=== PATIENT | female | born 1950 | race Asian ===

== ENCOUNTER 2020-06-20 08:28 | Outpatient (REF) | payer MEDICARE, SELFPAY ==
--- NOTE | 2020-06-20 08:45 | MR_ITS ---
MR CERVICAL SPINE WITHOUT CONTRAST CLINICAL INFORMATION: Pain in the right arm. Radiculopathy. COMPARISON: Cervical spine MRI March 16, 2013. TECHNIQUE: MRI of the cervical spine was obtained using routine sequences without contrast. FINDINGS: There is slight retrosubluxation of C4 on C5 and C5 on C6. There is moderate to severe disc volume loss at C5-C6. There is no bone marrow edema. There are no acute fractures. The craniocervical junction is unremarkable. Several body heights are maintained. The cervical arterial flow voids are maintained. There are no significant soft tissue findings. The partially imaged intracranial compartment is unremarkable. C2-C3: Disc contour is normal. Bilateral facet arthropathy. No central canal stenosis and no foraminal stenosis. C3-C4: Shallow central disc protrusion mildly narrows the central canal. Bilateral facet arthropathy. No foraminal stenosis. C4-C5: Increase in size of a left paracentral disc protrusion that now compresses the left cord resulting in severe left-sided central canal stenosis. No definite cord signal abnormality at this level. Progressive left-sided uncovertebral joint spurring and facet arthropathy resulting in worsening moderate to severe left-sided foraminal stenosis. C5-C6: Worsening large broad-based disc protrusion and ligamentum flavum thickening resulting in worsening severe central canal stenosis and significant compression of the cervical cord. Intramedullary T2 signal changes within the cord at this level have progressed in comparison to the previous study. Uncovertebral joint spurring and facet arthropathy result in similar severe bilateral foraminal stenosis at this level. C6-C7: Shallow central disc protrusion and ligamentum flavum thickening mildly narrow the central canal. Similar left foraminal disc protrusion resulting in severe left foraminal stenosis and compression of the exiting left C7 nerve root. C7-T1: Bilateral hypertrophic facet arthropathy resulting in mild bilateral foraminal encroachment. MR/MR cervical spine wo con IMPRESSION: - At C4-C5, there has been an increase in size of a soft left paracentral disc protrusion that now compresses the left cervical cord, resulting in severe left-sided central canal stenosis. Progressive left-sided uncovertebral joint spurring and facet arthropathy resulting in worsening moderate to severe left-sided foraminal stenosis. - At C5-C6, a broad-based central disc protrusion and ligamentum flavum thickening result in worsening severe central canal stenosis with significant compression of the spinal cord. Intramedullary T2 signal changes within the cord at this level have progressed and can be correlated for acute myelopathic symptoms. Stable severe bilateral foraminal stenosis at this level. - At C6-C7, there is a similar left foraminal disc protrusion resulting in severe left foraminal stenosis and compression of the exiting left C7 nerve root. Covering provider paged with these findings at 2:02 PM on June 21, 2020.
[2020-06-20 13:22] LABS: Glucose, Whole Blood 328 mg/dL (60-115)
== END 2020-06-20 08:29 | disposition home or self-care (01) ==
LOC: HO.MRI 08:28
PROVIDERS: PCP Internal Medicine Geriatric Medicine; Visit Provider Emergency Medicine
DX: M79.601 Pain in right arm (principal); R61 Generalized hyperhidrosis
CPT/HCPCS: 72141; 82947

== ENCOUNTER 2023-09-10 16:01 | Outpatient (REF) | payer MEDICARE, SELFPAY ==
--- NOTE | ~2023-09-10 | XR_ITS ---
EXAMINATION: XR SHOULDER, RIGHT CLINICAL INFORMATION: Acute right shoulder pain COMPARISON: None available. TECHNIQUE: AP external rotation, Grashey, scapular Y, and axillary views of the right shoulder. FINDINGS: The bones and soft tissues are normal. No fracture. Glenohumeral and acromioclavicular alignment is anatomic with normal joint space. No abnormal soft tissue calcifications. XR/XR shoulder RT min 2V IMPRESSION: Normal right shoulder.
== END 2023-09-10 16:02 | disposition home or self-care (01) ==
LOC: HO.HHCX 16:01
PROVIDERS: Visit Provider Internal Medicine Geriatric Medicine
DX: Z13.89 Encounter for screening for other disorder (principal)
CPT/HCPCS: 73030

== ENCOUNTER 2023-09-10 16:24 | Outpatient (REF) | payer MEDICARE, SELFPAY ==
[2023-09-10 17:23] LABS: MANUAL DIFF FLAG NO
[2023-09-10 17:26] LABS: Basophils Percent Auto 0.8 % (0-2); Eosinophils Absolute Auto 0.1 X10*3/uL (0.0-0.4); Eosinophils Percent Auto 2.1 % (0-4); Hematocrit 45.9 % (37.0-47.0); Imm Gran Abs Auto 0.01 X10*3/uL (0.00-0.03); Imm Gran Pct Auto 0.2 % (0.0-0.4); Lymphocytes Absolute Auto 2.6 X10*3/uL (1.2-4.9); Lymphocytes Percent Auto 50.2 % (20-40); Mean Corpuscular HGB Conc 34.9 g/dl (31.0-35.0); Mean Platelet Volume 10.7 fL (9.4-12.3); Monocytes Absolute Auto 0.2 X10*3/uL (0.1-1.2); Neutrophils Absolute Auto 2.2 x10*3/uL (2.0-8.3); Neutrophils Percent Auto 42.7 % (45-73); Platelet Count 206 X10*3/uL (160-400); Red Blood Count 5.16 X10*6/uL (4.20-5.50); Red Cell Distribution Width 11.7 % (11.0-16.0); White Blood Count 5.2 X10*3/uL (4.8-10.8)
[2023-09-10 18:06] LABS: Creatinine Urine 80.94 mg/dL; Microalbum/Creatinine Ratio Ur 75.3 ug/mg cr (<30)
[2023-09-10 18:36] LABS: Glucose Random 400 mg/dL (60-115)
[2023-09-10 18:37] LABS: Alanine Aminotransferase 19 U/L (0-31); Albumin Level 4.3 g/dL (3.5-5.0); Alkaline Phosphatase 99 U/L (39-117); Anion Gap 12 (12-20); Aspartate Amino Transferase 15 U/L (5-31); Bilirubin Total 0.9 mg/dL (0.0-1.0); Blood Urea Nitrogen 9 mg/dL (9-16); Calcium 9.9 mg/dL (8.4-10.2); Carbon Dioxide 28 mmol/L (22-29); Chloride 101 mmol/L (96-108); Estimated Glomerular Filt Rate 54; Potassium 3.8 mmol/L (3.3-5.1); Sodium 137 mmol/L (135-145); Total Protein 7.9 g/dL (6.5-8.0)
[2023-09-11 06:30] LABS: Hemoglobin A1c % > 14.0 % (<6.0)
== END 2023-09-10 16:25 | disposition home or self-care (01) ==
LOC: HO.HHCL 16:24
PROVIDERS: Visit Provider Internal Medicine Geriatric Medicine
DX: M25.511 Pain in right shoulder (principal); E11.65 Type 2 diabetes mellitus with hyperglycemia
CPT/HCPCS: 36415; 73030; 80053; 82043; 82570; 83036; 85025

== ENCOUNTER 2024-08-27 13:37 | Outpatient (REF) | payer MEDICARE, SELFPAY ==
[2024-08-27 16:31] LABS: MANUAL DIFF FLAG NO
[2024-08-27 16:36] LABS: Basophils Percent Auto 0.7 % (0-2); Eosinophils Absolute Auto 0.1 X10*3/uL (0.0-0.4); Eosinophils Percent Auto 2.4 % (0-4); Hematocrit 43.4 % (37.0-47.0); Hemoglobin 14.6 g/dl (12.0-16.0); Imm Gran Abs Auto 0.02 X10*3/uL (0.00-0.03); Imm Gran Pct Auto 0.3 % (0.0-0.4); Lymphocytes Absolute Auto 2.5 X10*3/uL (1.2-4.9); Lymphocytes Percent Auto 43.1 % (20-40); Mean Corpuscular HGB Conc 33.6 g/dl (31.0-35.0); Mean Corpuscular Hemoglobin 30.4 pg (27.0-33.0); Mean Corpuscular Volume 90.2 fL (80.0-98.0); Mean Platelet Volume 11.5 fL (9.4-12.3); Monocytes Absolute Auto 0.3 X10*3/uL (0.1-1.2); Monocytes Percent Auto 4.8 % (2-11); Neutrophils Absolute Auto 2.8 x10*3/uL (2.0-8.3); Neutrophils Percent Auto 48.7 % (45-73); Platelet Count 167 X10*3/uL (160-400); Red Blood Count 4.81 X10*6/uL (4.20-5.50); Red Cell Distribution Width 12.4 % (11.0-16.0); White Blood Count 5.8 X10*3/uL (4.8-10.8)
[2024-08-27 16:58] LABS: Anion Gap 10 (12-20); Blood Urea Nitrogen 13 mg/dL (9-16); Calcium 9.5 mg/dL (8.4-10.2); Carbon Dioxide 27 mmol/L (22-29); Chloride 104 mmol/L (96-108); Cholesterol 125 mg/dL (<200); Estimated Glomerular Filt Rate 59; HDL Cholesterol 64 mg/dL (>40); LDL Cholesterol Calculated 36 mg/dL (<100); Potassium 3.9 mmol/L (3.3-5.1); Sodium 137 mmol/L (135-145); Triglycerides 125 mg/dL (<150)
[2024-08-27 17:41] LABS: Creatinine Urine 198.27 mg/dL; Microalbum/Creatinine Ratio Ur 24.2 ug/mg cr (<30)
[2024-08-27 18:04] LABS: Glucose Random 358 mg/dL (60-115)
== END 2024-08-27 13:38 | disposition home or self-care (01) ==
LOC: HO.HHCL 13:37
DX: Z00.00 Encounter for general adult medical examination without abnormal findings (principal); E11.65 Type 2 diabetes mellitus with hyperglycemia
CPT/HCPCS: 36415; 80048; 80061; 82043; 82570; 85025

== ENCOUNTER 2025-02-09 09:59 | Outpatient (REF) | payer MEDICARE, SELFPAY ==
--- OUTSIDE RECORDS SUMMARY | 2025-02-09 10:47 | XMS_ITS | Clinical Summary ---
Author Organization [facility] Address [address] [place] [address] Care Team Providers Care Yard Conductor Name Role Phone None, Provider Primary Care Provider Unavailabl e Social History Tobacco Use Types Packs/Day Years Used Date Smoking Tobacco: Never Assessed Comments Unknown Sex and Gender Information Value Date Recorded Sex Assigned at Not on file Legal Sex Female 15:12 EST Gender Identity Not on file Sexual Orientation Not on file Plan of Treatment Health Maintenance Due Date Last Done Comments Hepatitis C Screen 1950 Fall Risk Screening 2014 COVID-19 Vaccine ( season) 2024 RSV Immunization ( o r 60+ Years) (1 - 1-dose 75+ series) 2024 Care Teams Yard Conductor Relationship Specialty Start Date End Date None, Provider PCP - General 07/06/15
--- OUTSIDE RECORDS SUMMARY | 2025-02-09 10:47 | XMS_ITS | Encounter Summary ---
Author Organization [employer] Address [address] [facility] [address] [place] [address] Care Team Providers Care Mica Layer Name Role Phone Name, Solo PONCE Primary Care Provider [phone] Clara Batista PharmD Unavailable [phone] Reason for Visit * Reason Comments Med Refill Encounter Details Date Type Department Care Team ([facility] st Contact Info) Description 07/21/2024 Refill [facility] [address] [place] [address] Name, MD Solo [address] [place] [address] Type 2 diabetes mellitus with hyperglycemia, without long-term current use of insulin ([facility]) Social History Tobacco Use Types Packs/Day Years Used Date Smoking Tobacco: Never Smokeless Tobacco: Never Depression Answer Date Recorded Patient Health Questionnaire-9 Score 3 09/19/2023 Patient Health Questionnaire-9 Score 3 09/19/2023 Last PHQ-9: Questionnaire Data Not on file 0 09/19/2023 Housing Stability Answer Date Recorded What is your housing situation today? I have sunita donaldson 09/19/[address] you li ve. Do you have problems with any of the following? None of the above 09/19/2023 Food Insecurity Answer Date Recorded Within the past 12 months, y ou worried that your food would run out before you got money to buy more: Never True 09/19/2023 Within the past 12 months,th e food you bought just didn't last and you didn't have enough money to get more: Never True 10/2023 Transportation Answer Date Recorded In the past 12 months, has l ack of transportation kept you from medical appts, meetings, work or from getting things needed for daily living? No 09/19/2023 Utilities Answer Date Recorded In the past 12 months, has t he electric, gas, oil or water company threatened to shut off services in your home? No 09/19/2023 Depression Answer Date Recorded Patient Health Questionnaire-2 Score 1 09/19/2023 Comments Unknown Sex and Gender Information Value Date Recorded Sex Assigned at Female 04/15/2022 10:19 AM EDT Legal Sex Female 10:19 AM EDT Gender Identity Choose not to disclose 10:19 AM EDT Sexual Orientation Choose not to disclose 2021 10:19 AM EDT documented as of this encounter Miscellaneous Notes * Telephone Encounter - Solo Bhatt MD - 07/21/2024 10:48 AM EST She needs to be seen, her blood sugar was very high in the past and she has not bee here in a long time documented in this encounter Plan of Treatment Upcoming Encounters Date Type Department Care Team (Late st Contact Info) Description 03/16/2025 9:00 AM EDT Medication Management [facility] [address] [place] [phone] Clara Batista, PharmD [address] [place] [phone] 04/21/2025 9:15 AM EST Office Visit [facility] [address] [place] [phone] Solo Bhatt MD [address] [place] [phone] documented as of this encounter Visit Diagnoses Diagnosis Type 2 diabetes mellitus with hyperglycemia, without long-term current use of insulin ([facility]) documented in this encounter Additional Health Concerns Assessment Noted Time PHQ-9 Depression Total Score: 3 09/19/19 24 1:37 PM EDT documented as of this encounter Care Teams Mica Layer Relationship Specialty Start Date End Date Solo Bhatt MD [address] [place] [phone] PCP - General Family Medicine 09/20/15 Clara Batista, Danny [address] [place] [phone] Pharmacist Internal Medicine 11/04/24 documented as of this encounter
--- OUTSIDE RECORDS SUMMARY | 2025-02-09 10:47 | XMS_ITS | Encounter Summary ---
Author Organization [employer] Address [address] [facility] [address] [place] [address] Care Team Providers Care Powder Room Attendant Name Role Phone Name, Solo PONCE Primary Care Provider [phone] Clara Batista PharmD Unavailable Reason for Visit * Reason Onset Date Comments Appointment Request 02/09/2025 Encounter Details Date Type Department Care Team ([facility] st Contact Info) Description 02/09/2025 Telephone [facility] [address] [place] [address] Name, MD Solo [address] [place] [address] Appointment Request Social History Tobacco Use Types Packs/Day Years [...] encounter Miscellaneous Notes * Telephone Encounter - Amanda Dey RN - 02/09/2025 10:11 AM EDT Received call from james Elizabeth who saw pt today for CDTM visit. She said pt is requesting tocancel her appt for 02/10/[address] Qureshi, stated her sxs resolved and she doesn't have transportation. Cancelled appt per pt request. documented in this encounter Plan of Treatment Upcoming Encounters Date Type Department Care Team (Late st Contact Info) Description 03/16/2025 9:00 AM EDT Medication Management [facility] [address] [place] [phone] Clara Batista, Danny [address] [place] [phone] 04/21/2025 9:15 AM EST Office Visit [facility] [address] [place] [phone] NameSolo MD [address] [place] [phone] documented as of this encounter Visit Diagnoses Not on filedocumented in this encounter Additional Health Concerns Assessment Noted Time PHQ-9 Depression Total Score: 3 09/19/19 24 1:37 PM EDT documented as of this encounter Care Teams Powder Room Attendant Relationship Specialty Start Date End Date NameSolo MD [address] [place] [id number] PCP - General Family Medicine 09/20/15 Clara Batista, Danny [address] [place] [address] Pharmacist Internal Medicine 11/04/24 documented as of this encounter
--- OUTSIDE RECORDS SUMMARY | 2025-02-09 10:47 | XMS_ITS | Encounter Summary ---
Author Organization [employer] Address [address] [facility] [address] [place] [address] Care Team Providers Care Fence Machine Operator Name Role Phone Name, Solo PONCE Primary Care Provider [phone] Clara Batsita PharmD Unavailable [phone] Reason for Visit * Reason Comments Med Refill Encounter Details Date Type Department Care Team ([facility] st Contact Info) Description 07/26/2024 Refill [facility] [address] [place] [address] Name, MD Solo [address] [place] [address] Type 2 diabetes mellitus with hyperglycemia, without long-term current use of insulin ([facility]); Type 2 diabetes mellitus with hyperglycemia, without long-term current use of insulin ([facility]) Social History Tobacco Use Types Packs/Day Years [...] AM EDT documented as of this encounter Plan of Treatment Upcoming Encounters Date Type Department Care Team (Late st Contact Info) Description 03/16/2025 9:00 AM EDT Medication Management [facility] [address] [place] [phone] Clara Batista PharmD [address] [place] [phone] 04/21/2025 9:15 AM EST Office Visit [facility] [address] [place] [phone] Name, MD Solo [address] [place] [phone] documented as of this encounter Visit Diagnoses Diagnosis Type 2 diabetes mellitus with hyperglycemia, without long-term current use of insulin ([facility]) documented in this encounter Additional Health Concerns Assessment Noted Time PHQ-9 Depression Total Score: 3 09/19/19 24 1:37 PM EDT documented as of this encounter Care Teams Fence Machine Operator Relationship Specialty Start Date End Date Name, MD Solo [address] [place] [phone] PCP - General Family Medicine 09/20/15 Clara Batista PharmD [address] [place] [phone] Pharmacist Internal Medicine 11/04/24 documented as of this encounter
--- OUTSIDE RECORDS SUMMARY | 2025-02-09 10:47 | XMS_ITS | Encounter Summary ---
Author Organization [employer] Address [address] [facility] [address] [place] [address] Care Team Providers Care Insurance And Benefits Clerk Name Role Phone Name, Solo PONCE Primary Care Provider [phone] Clara Batista PharmD Unavailable [phone] Reason for Visit * Reason Comments Med Refill Encounter Details Date Type Department Care Team ([facility] st Contact Info) Description 08/18/2024 Refill [facility] [address] [place] [address] Peggy Cantrell NP [address] [place] [address] Type 2 diabetes mellitus with hyperglycemia, without long-term current use of insulin ([facility]) Social History Tobacco Use Types Packs/Day Years [...] Description 03/16/2025 9:00 AM EDT Medication Management [facility] [address] [place] [phone] Clara Batista PharmD [address] [place] [phone] 04/21/2025 9:15 AM EST Office Visit [facility] [address] [place] [phone] Name, MD Solo [address] [place] [phone] documented as of this encounter Visit Diagnoses Diagnosis Type 2 diabetes mellitus with hyperglycemia, without long-term current use of insulin ([facility]) documented in this encounter Additional Health Concerns Assessment Noted Time PHQ-9 Depression Total Score: 3 09/19/19 24 1:37 PM EDT documented as of this encounter Care Teams Insurance And Benefits Clerk Relationship Specialty Start Date End Date Name, MD Solo [address] [place] [phone] PCP - General Family Medicine 09/20/15 Clara Batista PharmD [address] [place] [phone] Pharmacist Internal Medicine 11/04/24 documented as of this encounter
--- OUTSIDE RECORDS SUMMARY | 2025-02-09 10:47 | XMS_ITS | Clinical Summary ---
Author Organization [email or web address] Address [address] [facility] [address] [place] [address] Care Team Providers Care Assault Amphibious Vehicle Officer Name Role Phone Name, Solo PONCE Primary Care Provider [phone] Clara Batista PharmD Unavailable [phone] Allergies No known active allergies Medications Alcohol Swabs 70 % pads Use to test blood sugar one times daily 100 each 09/12/19 24 Active Blood Glucose Monitoring Suppl (FreeStyle [place] Lite) w/Device kit Use to test blood sugar once times daily 1 kit 09/12/19 24 Active FREESTYLE LITE test stripIndicatio ns:Type 2 diabetes mellitus with hyperglycemia, without long-term current use of insulin (CMS/HCC) USE ONCE DAILY 100 each 11 05/17/20 24 Active TRUEplus Lancets 33G miscIndication s:Type 2 diabetes mellitus with hyperglycemia, without long-term current use of insulin (CMS/HCC) USE DIRECTED TO TEST BLOOD SUGAR EVERY DAY 100 each 11 05/19/20 24 Active atorvastatin (Lipitor) 40 MG tabletIndicati ons:Type 2 diabetes mellitus with hyperglycemia, without long-term current use of insulin (CMS/HCC) Take 1 tablet (40 mg) by mouth in the morning. 90 tablet 3 08/28/19 25 Active cetirizine (ZyrTEC) 10 MG tabletIndicati ons:Poison jamar dermatitis Take 1 tablet (10 mg) by mouth if needed each day for allergies. 30 tablet 11/12/19 25 Active glimepiride (Amaryl) 4 MG tabletIndicati ons:Type 2 diabetes mellitus with hyperglycemia, without long-term current use of insulin (CMS/HCC) Take 1 tablet (4 mg) by mouth before breakfast. 30 tablet 1 02/01/20 25 Active terconazole (Terazol 7) 0.4 % vaginal cream Insert 1 applicator into the vagina at bedtime for 14 days. 45 g 02/01/20 25 025 Active empagliflozin- metFORMIN ER (Synjardy XR) 12.5-1000 MG 24 hr tablet Take 2 tablets by mouth with breakfast. 180 tablet 1 02/10/20 25 Active Jardiance 25 MGIndications: Type 2 diabetes mellitus with hyperglycemia, without long-term current use of insulin ([facility]) TAKE 1 TABLET BY MOUTH EVERY DAY IN THE MORNING 30 tablet 3 09/21/19 25 025 Discontinued(Re order (will not trigger notification to Pharmacy)) metFORMIN XR (Glucophage-XR ) 500 MG 24 hr tabletIndicati ons:Type 2 diabetes mellitus with hyperglycemia, without long-term current use of insulin ([facility]) Take 1 tablet (500 mg) by mouth with breakfast AND 2 tablets (1,000 mg) with evening meal. Do not crush, chew, or split. 270 tablet 11/05/19 025 Discontinued(Re order (will not trigger notification to Pharmacy)) clobetasol (Temovate) 0.05 % ointmentIndica tions:Poison jamar dermatitis Apply topically 2 times daily. 30 g 1 11/12/19 025 Discontinued(Me d list cleanup (will not trigger notification to Pharmacy)) glimepiride (Amaryl) 4 MG tabletIndicati ons:Type 2 diabetes mellitus with hyperglycemia, without long-term current use of insulin ([facility]) TAKE 1 TABLET BY MOUTH EVERY DAY BEFORE BREAKFAST 30 tablet 1 12/23/19 25 025 Discontinued(Re order (will not trigger notification to Pharmacy)) empagliflozin (Jardiance) 25 MGIndications: Type 2 diabetes mellitus with hyperglycemia, without long-term current use of insulin ([facility]) Take 1 tablet (25 mg) by mouth in the morning. 30 tablet 1 02/01/20 25 025 Discontinued(Al ternate therapy) metFORMIN XR (Glucophage-XR ) 500 MG 24 hr tabletIndicati ons:Type 2 diabetes mellitus with hyperglycemia, without long-term current use of insulin ([facility]) Take 2 tablets (1,000 mg) by mouth with breakfast AND 1 tablet (500 mg) with evening meal. Do not crush, chew, or split. 90 tablet 1 02/01/20 25 025 Discontinued(Al ternate therapy) Active Problems Problem Noted Date Diagnosed Date Vulvovaginitis 02/01/2025 Assessment & Plan (02/01/2025 12:26 AM EDT): Urine dipstick Glu 500, ketone neg , blood neg , LE, nitrates neg Severe erythema of vulva -generalized with whitish discoloration ( pt reports using unspecified cream in area) , no vaginal pain w palpation nor vaginal discharge noted ,noted small fissure in right upper vulva -seems possibly from scratching Seems severe vulvar rocael infection possible in setting of jardiance use?,denies hx of reccurent of fungal infection -terconazole cream to apply in vulva daily for 14 days -I will see in clinic in 10 days to monitor -if no improvement will refer to dermatology to r/o other vulvar pathology in which case will likely need bx -If resolved but recurs will need to consider jardiance as likely cause and will need to consider discontinuation, given 1st episode will continue for now Type 2 diabetes mellitus 08/02/2022 Assessment & Plan (02/01/2025 12:25 AM EDT): -hb1AC 8.6 ,CBG 189 today -08/2024 Basic panel wnl, GFR 59 Better control but still not at goal Given uncontrol DM can predispose to rocael vulvovaginitis will adjust regimen -Saw CDTM in 11/04/2024 -on Glimepiride 4 mg daily ,Jardiance 25 mg daily,Metformin ER 500 mg twice daily -increase today metformin to 1000 mg am and continue 500 mg Pm -f w PCP and CDTM-sent message to pharmacist to help pt for f up apt Assessment & Plan (10/10/2023 5:52 PM EDT): Restart metformin , monitor renal function, pt aware of importance of close monitoring, labs ordered for 3 months Pt declines assistance including nurse visits and med management at pharmacy Encouraged routine health maintenance Assessment & Plan (09/20/2023 5:35 PM EDT): Pt with needle phobia, extensive conversation about limitations of oral medications and ability to lower blood sugar, encouraged pt to consider glp-1 , pt verablizes understanding, declines Increase jardiance to 25 mg, Labs ordered Spinal cord compression 08/02/2022 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 [address] [place] [phone] Solo Bhatt MD Appointment Request 02/09/2025 Travel 01/31/2025 2:00 PM EDT Office Visit [facility] [address] [place] [phone] Quyen Merritt MD Vulvovaginitis (Primary Dx); Vaginal itching; Type 2 diabetes mellitus with hyperglycemia, without long-term current use of insulin ([facility]) 01/31/2025 Travel 01/31/[address] [facility] [address] [place] [phone] Solo Bhatt MD Type 2 diabetes mellitus with hyperglycemia, without long-term current use of insulin ([facility]) 12/22/[address] [facility] [address] [place], [place] [phone] Solo Bhatt MD Type 2 diabetes mellitus with hyperglycemia, without long-term current use of insulin ([facility]) 12/20/[address] [facility] [address] [place], [place] [phone] Solo Bhatt MD Type 2 diabetes mellitus with hyperglycemia, without long-term current use of insulin ([facility]) 11/11/2024 1:40 PM EDT Office Visit [facility] [address] [place] [address] [phone] Hillary Rodriguez MD Poison jamar dermatitis (Primary Dx) 11/11/2024 Travel from Last 3 Months Immunizations Immunization Administration Dates Next Due Influenza High-dose Quadrivalent Preservative Fr ee 03/27/2022,06/30/2020 Influenza injectable quadriv alent IIV4 with preservative 05/21/2016,03/08/2015 Influenza, High Dose Seasonal, Preservative Free 05/03/2019,05/04/2018 Influenza, IIV3, injectable 05/17/2014, 1 Influenza, Split (incl. purified surface antigen ) 06/14/2013 Pfizer Covid-19 Vaccine 12+ norman-sucrose ([place] C ap) 08/30/2021 Pneumococcal Conjugate PCV 13 03/08/2015 Pneumococcal Polysaccharide PPSV23 06/30/2020, TD (adult), 2 Lf tetanus tox oid, preservative free, adsorbed 03/16/2008 Tdap 02/09/2025,06/14/2013 Zoster, Recombinant 03/05/2022 Zoster, live 03/08/2015 Social History Tobacco Use Types Packs/Day Years Used Date Smoking Tobacco: Never Smokeless Tobacco: Never Tobacco Cessation:Counseling Given: Not Answered Depression Answer Date Recorded Patient Health Questionnaire-9 [...] not to disclose 2021 10:19 AM EDT Last Filed Vital Signs Vital Sign Reading Time Taken Comments Blood Pressure 102/70 01/31/2025 1:57 PM EDT Pulse 91 01/31/2025 1:57 PM EDT Temperature 36.2 C (97.1 F) 01/31/2025 1:57 PM EDT Respiratory Rate 20 01/31/2025 1:57 PM EDT Oxygen Saturation 99% 01/31/2025 1:57 PM EDT Inhaled Oxygen Concentration - - Weight 51.6 kg (113 lb 12.8 oz) 01/31/2025 1:57 PM EDT Height 149.9 cm (4' 11 ) 01/31/2025 1:57 PM EDT Body Mass Index 22.98 01/31/2025 1:57 PM EDT Plan of Treatment Upcoming Encounters Date Type Department Care Team (Late st Contact Info) Description 03/16/2025 9:00 AM EDT Medication Management [facility] MED[facility]INE [address] [place] [phone] PuiaBrandysa, PharmD [address] [place] [phone] 04/21/2025 9:15 AM EST Office Visit [facility] MED[facility] [address] [place] [address] [phone] Name, MD Solo [address] [place] [phone] Health Maintenance Due Date Last Done Comments CT Colonography 1949 Colonoscopy 1949 Colorectal Cancer Screening 1949 FIT DNA/Cologuard 1949 FIT 1949 FOBT 1949 Sigmoidoscopy 1949 Alcohol/Substance Use Screening 1961 Hepatitis C Screening 12/22/1967 Zoster Vaccines (3 of 3) 04/30/2022 03/05/2022, 02/15 COVID-19 Vaccine ( season) 2024 08/30/2021, 10/22/2020, 10/01/2020 Depression Screening 09/18/2024 09/19/2023, 09/19/19 24 SDOH Screening 09/18/2024 09/19/2023 RSV Patients and Patients Aged 60 years or older (1 - 1-dose 75+ series) 2024 Influenza Vaccine (#1) 2025 , 06/30/2020, 05/03/2019, Additional history exists Eye Exam 03/30/2025 03/30/2024, 03/16, 03/30/2024, Additional history exists Diabetes: Hemoglobin A1C 05/03/2025 025, 08/27/2024, 09/10/2023, Additional history exists Diabetes: Foot Exam 08/27/2025 08/27/2024, 08/27/2024, 08/27/2024, Additional history exists Diabetes: Urine Protein Screening 08/27/2025 08/27/2024, 09/10/2023, 08/06/2022, Additional history exists Lipid Panel 08/27/2025 08/27/2024, 07/18, 01/03/2022 Tobacco Screening 01/31/2026 01/31/2025 DTaP/Tdap/Td Vaccines (3 - Td or Tdap) 02/09/2035 02/09/2025, 06/14/2013, 03/16/2008 Pneumococcal Vaccine: 50+ Years Completed 06/30/2020, 03/08/2015, 11/08/2008 HIB Vaccines Aged Out No longer eligi ble based on patient's age to complete this topic HPV Vaccines Aged Out No longer eligi ble based on patient's age to complete this topic Hepatitis A Vaccines Aged Out No long er eligible based on patient's age to complete this topic Hepatitis B Vaccines Aged Out No long er eligible based on patient's age to complete this topic IPV Vaccines Aged Out No longer eligi ble based on patient's age to complete this topic Meningococcal B Vaccine Aged Out No l onger eligible based on patient's age to complete this topic Meningococcal Vaccine Aged Out No luiz ankit eligible based on patient's age to complete this topic RSV under 20 months Aged Out No longe r eligible based on patient's age to complete this topic Rotavirus Vaccines Aged Out No longer eligible based on patient's age to complete this topic Procedures Procedure Name Priority Date/Time Associated Diagnosis Comments POCT GLUCOSE Routine 02/09/2025 9:49 AM EDT Type 2 diabetes mellitus with hyperglycemia, without long-term current use of insulin ([facility]) POCT GLYCATED HEMOGLOBIN, TOTAL Routine 01/31/2025 2:17 PM EDT Type 2 diabetes mellitus with hyperglycemia, without long-term current use of insulin ([facility]) POCT GLUCOSE Routine 01/31/2025 2:14 PM EDT Type 2 diabetes mellitus with hyperglycemia, without long-term current use of insulin ([facility]) POCT URINALYSIS DIPSTICK Routine 01/31/2025 2:03 PM EDT Vaginal itching ALBUMIN, RANDOM URINE W/CREATININE Routine 08/27/2024 1:40 PM EDT Type 2 diabetes mellitus with hyperglycemia, without long-term current use of insulin ([facility]) LIPID PANEL, STANDARD Routine 08/27/2024 1:40 PM EDT Type 2 diabetes mellitus with hyperglycemia, without long-term current use of insulin ([facility]) from Last 3 Months or Most Recently Relevant to Health Maintenance Results * (ABNORMAL) POCT Glucose (02/09/2025 9:49 AM EDT) Only the most recent of2 resultswithin the time period is included. Glucose Blood, POC 256(A) 60 - 200 mg/dL Blood Capillary blood specimen / Unknown 02/09/2025 9:49 AM EDT us Solo Name MD POINT OF CARE TEST ENTER/EDIT OR DERABLES Final Result * (ABNORMAL) POCT HGB A1C (01/31/2025 2:17 PM EDT) Pathologist [facility] Hemoglobin A1C 8.6(A) 4.0 - 5.7 % QC Media Lot # [id number] Lot# Expiration Date [id number] Blood 01/31/2025 2:17 PM EDT Quyen Box MD POINT OF CARE FRANCIE T ENTER/EDIT ORDERABLES Final Result * POCT Urinalysis (01/31/2025 2:03 PM EDT) Pathologist [facility] Color, UA Yellow Clarity, UA Clear Glucose, UA 4+ >500 Comment:500 Bilirubin, UA Negative Ketones, UA Negative Spec Grav, UA 1.010 Blood, UA Negative Negative, None Detected pH, UA 6.0 Protein, UA Negative Urobilinogen, UA 0.2 Leukocytes, UA Negative Negative, Rare, Trace Nitrite, UA Negative Negative, None Detected QC Media Lot # [id number] Lot# Expiration Date [id number] Urine 01/31/2025 2:03 PM EDT Quyen Box MD POINT OF CARE FRANCIE T ENTER/EDIT ORDERABLES Final Result * Albumin, Random Urine W/Creatinine (08/27/2024 1:40 PM EDT) Creatinine, Urine 198.27 mg/dL [facility] Microalbumin Urine 48.0 mg/L [facility] Microalbum Creatinine Ratio Ur 24.2 <30 ug/mg cr [facility] Comment:Albumin/Creatinine R [facility] Reference Ranges: Normal: < 30 ug/mg creatinine Microalbuminuria: 30 - 300 ug/mg creatinineClinical Albuminuria: > 300 ug/mg creatinine Urine (Urine, Random) 08/27/2024 1:40 PM EDT 08/27/2024 4:10 PM EDT [facility] RECEPTION[facility] LAB URINE ORDERABLES Paradise l Result Performing Organization Address [facility] Co de Phone Number [facility] [address] [place] [phone] [phone] * Lipid Panel, Standard (08/27/2024 1:40 PM EDT) Triglycerides 125 <150 mg/dL [facility] Comment:Desirable Triglyceri de: less than 150 mg/dLBorderline High Triglyceride 150-199 mg/dLHigh Triglyceride: 200-499 mg/dLVery High Triglyceride: greater than or equal to 5OO mg/dL Cholesterol 125 <200 mg/dL [facility] Comment:Desirable Cholestero l: less than 200 mg/dLBorderline High Cholesterol: 200-239 mg/dLHigh Cholesterol: greater than 239 mg/dL LDL Cholesterol Calculated 36 <100 mg/dL [facility] Comment:Desirable LDL: less than 100 mg/dLNear Optimal/Above Optimal LDL: 110- 129 mg/dLBorderline High LDL: 130-159 mg/dLHigh LDL: 160-189 mg/dLVery High LDL: greater than or equal to 190 mg/dL HDL Cholesterol 64 >40 mg/dL [facility] Comment:Desirable HDL: great er than 40 mg/dL Note: This HDL assay may give artificially low results in patients with liver disease. Blood Venous blood specimen / Unknown 08/27/2024 1:40 PM EDT 08/27/2024 4:20 PM EDT [facility] LAB BLOOD ORDERABLES Paradise l Result Performing Organization Address [facility]/ZIP Co de Phone Number [facility] [address] [place] [address] [phone] from Last 3 Months or Most Recently Relevant to Health Maintenance Insurance MEDICARE Care Teams Assault Amphibious Vehicle Officer Relationship Specialty Start Date End Date Name, MD Solo [address] [place] [address] PCP - General Family Medicine 09/20/15 Clara Batista PharmD [address] [place] [address] Pharmacist Internal Medicine 11/04/24
--- OUTSIDE RECORDS SUMMARY | 2025-02-09 10:47 | XMS_ITS | Encounter Summary ---
Author Organization [employer] Address [address] [facility] [address] [place] [address] Care Team Providers Care Careers Counsellor Name Role Phone Name, Solo PONCE Primary Care Provider [phone] Clara Batista PharmD Unavailable [phone] Reason for Visit * Reason Comments Med Refill Encounter Details Date Type Department Care Team ([facility] st Contact Info) Description 12/20/2024 Refill [facility] [address] [place] [address] Name, MD Solo [address] [place] [address] Type 2 diabetes mellitus with hyperglycemia, without long-term current use of insulin ([facility]) Social History Tobacco Use Types Packs/Day Years [...] Description 03/16/2025 9:00 AM EDT Medication Management [facility] [address] [place] [phone] Clara Batista PharmD [address] [place] [phone] 04/21/2025 9:15 AM EST Office Visit [facility] [address] [place] [address] [phone] Name, MD Solo [address] [place] [phone] documented as of this encounter Visit Diagnoses Diagnosis Type 2 diabetes mellitus with hyperglycemia, without long-term current use of insulin ([facility]) documented in this encounter Additional Health Concerns Assessment Noted Time PHQ-9 Depression Total Score: 3 09/19/19 24 1:37 PM EDT documented as of this encounter Care Teams Careers Counsellor Relationship Specialty Start Date End Date Name, MD Solo [address] [place] [phone] PCP - General Family Medicine 09/20/15 Clara Batista PharmD [address] [place] [phone] Pharmacist Internal Medicine 11/04/24 documented as of this encounter
--- OUTSIDE RECORDS SUMMARY | 2025-02-09 10:47 | XMS_ITS | Encounter Summary ---
Author Organization [employer] Address [address] [place] [address] Care Team Providers Care Business Integration Analyst Name Role Phone Name, Solo PONCE Primary Care Provider [phone] Clara Batista PharmD Unavailable [phone] Encounter Details Date Type Department Care Team (Latest Contact Info) Description 02/09/2025 Travel Social History Tobacco Use Types Packs/Day Years [...] Description 03/16/2025 9:00 AM EDT Medication Management [facility] MEDICINE [address] [place] [phone] Clara Batista PharmD [address] [place] [phone] 04/21/2025 9:15 AM EST Office Visit [facility] MEDICINE [address] [place] [address] [phone] Name, MD Solo [address] [place] [phone] documented as of this encounter Visit Diagnoses Not on filedocumented in this encounter Additional Health Concerns Assessment Noted Time PHQ-9 Depression Total Score: 3 09/19/19 24 1:37 PM EDT documented as of this encounter Care Teams Business Integration Analyst Relationship Specialty Start Date End Date Name, MD Solo [address] [place] [address] [phone] PCP - General Family Medicine 09/20/15 Clara Batista PharmD [address] [place] [phone] Pharmacist Internal Medicine 11/04/24 documented as of this encounter
[2025-02-09 11:51] LABS: Alanine Aminotransferase 48 U/L (0-31); Albumin Level 4.0 g/dL (3.5-5.0); Alkaline Phosphatase 78 U/L (39-117); Anion Gap 11 (12-20); Aspartate Amino Transferase 34 U/L (5-31); Blood Urea Nitrogen 9 mg/dL (9-16); Calcium 9.5 mg/dL (8.4-10.2); Carbon Dioxide 26 mmol/L (22-29); Chloride 106 mmol/L (96-108); Cholesterol 127 mg/dL (<200); Estimated Glomerular Filt Rate > 60; HDL Cholesterol 60 mg/dL (>40); Potassium 4.0 mmol/L (3.3-5.1); Sodium 139 mmol/L (135-145); Total Protein 6.9 g/dL (6.5-8.0); Triglycerides 75 mg/dL (<150)
[2025-02-09 12:16] LABS: Vitamin B12 300 pg/mL (200-900)
== END 2025-02-09 10:00 | disposition home or self-care (01) ==
LOC: HO.HHCL 09:59
PROVIDERS: PCP Internal Medicine Geriatric Medicine; Visit Provider Internal Medicine Geriatric Medicine
DX: Z00.00 Encounter for general adult medical examination without abnormal findings (principal); E11.65 Type 2 diabetes mellitus with hyperglycemia
CPT/HCPCS: 36415; 80048; 80061; 80076; 82607